=== PATIENT | male | born 2000 | race Caucasian/White ===

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

== ENCOUNTER 2020-04-23 12:56 | Emergency (ER) | payer MEDICAID, SELFPAY ==
[2020-04-23 13:48] VITALS: BP 113/68; PULSE 69; RESP 16; TEMP 36.2; O2SAT 98; BMI 19.9
[2020-04-23 14:04] VITALS: RESP 16
--- NOTE | 2020-04-23 14:31 | W.ED.BACK ---
HPI - Back Pain/Injury General: Chief Complaint: Back Pain/Injury Stated Complaint: Left lower back pain*2 weeks Time Seen by Provider: 04/23/20 14:11 History of Present Illness: HPI Narrative: Patient hurt back possibly was doing some remodeling house. Hurts to bend twist left side denies any hematuria did have an episode dysuria x1 MD elicited complaint: back pain Onset (ago): day(s) Timing: intermittent Severity: mild Similar Symptoms Previously: No Quality: aching Location: left flank Radiation: none Exacerbating factors: movement, sitting upright and walking Relieving factors: immobilization Associated symptoms: Reports other (Had dysuria x1 this week); Deny abdominal pain, chills, fever(s), nausea or vomiting Treatments prior to arrival: NSAIDS Work related injury: No Review of Systems Const: Denies: fever(s), chills or body aches Eyes: Denies: change in vision or blurry vision ENMT: Denies: throat pain or nasal congestion Card: Denies: chest pain or dyspnea on exertion Resp: Denies: dyspnea, productive cough or non-productive cough GI: Denies: abdominal pain, nausea or vomiting : Denies: difficulty urinating Musc: Reports: back pain; Denies: extremity pain Skin/Breast: Denies: rash Neuro: Denies: headache(s) Psych: Denies: anxiety or depression Quique/Lymph: Denies: easy bruising PFSH ED PFSH: Social History (Updated 04/23/20 @ 13:54 by Derrick Peralta RN) Smoking and tobacco status: former smoker Alcohol intake: never Substance/Drug Use: never Physical Exam Const: COMMON NORMALS: no acute distress, average body habitus and patient oriented x3 HENMT: COMMON NORMALS: normocephalic HEAD & SCALP: normal to inspection and normocephalic FACE & SINUS: normal facial exam Eye: COMMON NORMALS: conjunctivae normal GENERAL EYE: appearance normal, both eyes and all related structures CONJUNCTIVA: Yes conjunctivae normal Neck/C-Spine: COMMON NORMALS: no JVD Chest: COMMONS NORMALS: normal inspection of the chest Resp: COMMON NORMALS: normal respiratory effort and clear to auscultation bilaterally AUSCULTATION: clear to auscultation bilaterally Cardio: COMMON NORMALS: no JVD, regular rate and regular rhythm RATE: regular rate RHYTHM: regular rhythm GI: COMMON NORMALS: Normal to inspection, nondistended, normoactive bowel sounds present : BLADDER/KIDNEY EXAM: Yes CVA tenderness Back/Pelvis: GENERAL BACK: Yes CVA tenderness CVA tenderness: left Extremity: COMMON NORMALS: normal to inspection and full ROM Neuro: COMMON NORMALS: patient oriented x3 Course Vital Signs: Vital signs: Vital Signs Temperature 97.2 F L 04/23/20 13:48 Pulse Rate 69 04/23/20 13:48 Respiratory Rate 16 04/23/20 14:04 Blood Pressure 113/68 04/23/20 13:48 Pulse Oximetry 98 04/23/20 13:48 Coding Level of Care Code ED Senior Cobol Developer for Danis Reid
[2020-04-23 14:44] LABS: Add Urine Microscopic? NO
[2020-04-23 14:48] LABS: Protein Urine Neg (Negative); Urine Appearance Clear (CLEAR); Urine Color Straw (Yellow); pH Urine 8 (5-7)
[2020-04-23 14:49] LABS: Bilirubin Urine Neg (Negative); Blood Urine Neg (Negative); Glucose Urine UA Norm (Normal); Ketones Urine Negative (Negative); Leukocyte Esterase Urine Negative (Negative); Nitrate Urine Negative (Negative); Sulfosalicylic Acid Urine Negative (Negative); Urobilinogen Urine Norm (Negative)
== END 2020-04-23 15:14 | disposition home or self-care (01) ==
PROVIDERS: Emergency Provider Nurse Practitioner Family
DX: M54.5 Low back pain (principal); Z87.891 Personal history of nicotine dependence
CPT/HCPCS: 12345; 81003; 99281; 99282

== ENCOUNTER 2020-09-29 21:21 | Emergency (ER) | payer MEDICAID, SELFPAY ==
[2020-09-29 21:26] VITALS: BP 129/82; PULSE 78; RESP 18; TEMP 36.6; O2SAT 98; BMI 21.4
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
[2020-09-29 22:08] VITALS: PULSE 79; O2SAT 99
[2020-09-29 22:12] VITALS: BP 124/73; PULSE 66; RESP 18; O2SAT 100
[2020-09-29] MEDS: lidocaine 1% INJ 20 mL INJECTION (22:12)
== END 2020-09-29 22:14 | disposition home or self-care (01) ==
PROVIDERS: Emergency Provider Nurse Practitioner Family
DX: S81.811A Laceration without foreign body, right lower leg, initial encounter (principal); W26.0XXA Contact with knife, initial encounter; Z87.891 Personal history of nicotine dependence
CPT/HCPCS: 12002; 99282

== ENCOUNTER → 2021-12-26 09:35 | Outpatient (BNVA) | payer OTHER, MEDICAID, SELFPAY | PROVIDERS: Visit Provider Nurse Practitioner | DX: F90.0 Attention-deficit hyperactivity disorder, predominantly inattentive type (principal); F70 Mild intellectual disabilities; F43.25 Adjustment disorder with mixed disturbance of emotions and conduct; Z72.0 Tobacco use | CPT/HCPCS: 90792 ==

== ENCOUNTER 2022-01-07 03:17 | Emergency (ER) | payer MEDICAID, SELFPAY ==
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
[2022-01-07 03:30] VITALS: BP 144/87; PULSE 78; RESP 16; TEMP 36.7; O2SAT 98; BMI 19.6
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
[2022-01-07 05:09] VITALS: PULSE 62; RESP 17; O2SAT 100
== END 2022-01-07 05:10 | disposition home or self-care (01) ==
PROVIDERS: Emergency Provider Emergency Medicine
DX: S09.90XA Unspecified injury of head, initial encounter (principal); V48.0XXA Car driver injured in noncollision transport accident in nontraffic accident, initial encounter
CPT/HCPCS: 70450; 73130; 99283

== ENCOUNTER 2022-02-11 17:00 | Emergency (ER) | payer OTHER, SELFPAY ==
--- NOTE | 2022-02-11 17:05 | XRR_ITS ---
PROCEDURE INFORMATION: Exam: XR Left Hand Exam date and time: 02/11/2022 5:26 PM Age: 21 years old Clinical indication: Hand; Right; Patient HX: Pain base of 5th finger; Additional info: Injury TECHNIQUE: Imaging protocol: Radiologic exam of the Left hand. Views: 3 or more views. COMPARISON: CR (UP EX, ) 01/07/2022 3:57 AM FINDINGS: Bones/joints: Normal. Soft tissues: Normal. XR/XR hand LT min 3V* [id number] IMPRESSION: No acute findings.
[2022-02-11 18:33] VITALS: BP 122/84; PULSE 80; RESP 16; TEMP 36.9; O2SAT 100
--- NOTE | 2022-02-11 19:54 | ED_ITS ---
HPI - Extremity Problem General: Chief complaint: Extremity Injury, Upper Stated complaint: finger injury on left Time Seen by Provider: 02/11/22 19:43 History of Present Illness: 21-year-old male patient comes in today for complaints of injury to the left little finger. Patient thinks he dislocated it at the MCP joint. Patient reports putting it back into place and since then he has had no significant discomfort or decreased range of motion. No obvious sign of injury is noted. Patient appears well. 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 Mild intellectual disability Psychiatric care Vapes nicotine containing substance Social History Smoking and tobacco status: current every day smoker e-cigarettes Alcohol intake: never Physical Exam Const: COMMON NORMALS: alert HENMT: COMMON NORMALS: normocephalic HEAD & SCALP: normocephalic Neck/C-Spine: COMMON NORMALS: full ROM Resp: COMMON NORMALS: normal respiratory effort Cardio: COMMON NORMALS: regular rate RATE: regular rate Extremity: LEFT UPPER EXTREMITY: Yes hand & digits (No deformity, normal range of motion) Left hand and digits: Yes inspection, Yes palpation and Yes ROM Neuro: SENSORIUM/ORIENTATION: Yes alert Course Vital Signs: Vital signs: Vital Signs Temperature 98.4 F 02/11/22 18:33 Pulse Rate 80 02/11/22 18:33 Respiratory Rate 16 02/11/22 18:33 Blood Pressure 122/84 02/11/22 18:33 Pulse Oximetry 100 02/11/22 18:33 MDM - Extremity (Nontraumatic) Medical Decision Making Patient comes in for concerns of injury to the left little finger. On exam there is no sign of injury. No significant swelling or bruising is noted. Differential diagnosis includes fracture, sprain, contusion. X-rays noted no fracture, sprain, dislocation. Reviewed exam with patient with recommendations for treatment and follow-up. Patient reported understanding and agreed to plan. Lab Data Radiology Impressions Hand X-Ray 02/11/22 17:05 IMPRESSION: No acute findings. Discharge Plan Discharge Patient Disposition: Home Clinical Impression: Finger sprain Qualifiers: Encounter type: initial encounter Finger: little finger Sprain of finger site: unspecified site Laterality: left Qualified Code(s): S63.617A - Unspecified sprain of left little finger, initial encounter Condition: Stable Prescriptions: No Action bupropion HCl 150 mg tablet extended release 24 hr 150 mg PO QAM 0RF methocarbamol 750 mg tablet 750 mg PO Q6H PRN (Reason: spasms) Qty: 20 0RF Naprosyn 500 mg tablet 500 mg PO BID PRN (Reason: pain) Qty: 20 0RF Discharge Orders: Discharge ED (Routine); Ordered 02/11/22 Ordered By: Santino Walsh Discharge Diet: Usual diet Discharge Activity: Increase activity as tolerated Patient Instructions: Finger Sprain (ED) Activity Restrictions/Additional Instructions: Activity as tolerated. Acetaminophen and ibuprofen for pain. Follow-up with primary care for further instructions. Return to ER for new concerns. 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
== END 2022-02-11 20:34 | disposition home or self-care (01) ==
PROVIDERS: Emergency Provider Nurse Practitioner Family
DX: S63.617A Unspecified sprain of left little finger, initial encounter (principal); F17.290 Nicotine dependence, other tobacco product, uncomplicated; X58.XXXA Exposure to other specified factors, initial encounter
CPT/HCPCS: 73130; 99283

== ENCOUNTER 2022-02-12 22:17 | Emergency (ER) | payer MEDICAID, SELFPAY ==
[2022-02-12 22:35] VITALS: BP 119/72; PULSE 97; RESP 18; TEMP 36.6; O2SAT 97; BMI 20.3
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
== END 2022-02-13 00:15 | disposition home or self-care (01) ==
PROVIDERS: Emergency Provider Nurse Practitioner Family
DX: S20.211A Contusion of right front wall of thorax, initial encounter (principal); S80.11XA Contusion of right lower leg, initial encounter; F17.290 Nicotine dependence, other tobacco product, uncomplicated; V89.2XXA Person injured in unspecified motor-vehicle accident, traffic, initial encounter
CPT/HCPCS: 71101; 73590; 99283

== ENCOUNTER 2022-08-06 09:45 | Emergency (ER) | payer MEDICAID, SELFPAY ==
[2022-08-06 09:54] VITALS: BP 132/79; PULSE 70; RESP 16; TEMP 36.6; O2SAT 99; BMI 3237.7
--- NOTE | 2022-08-06 10:04 | XRR_ITS ---
PROCEDURE INFORMATION: Exam: XR Right Hand Exam date and time: 08/06/2022 10:09 AM Age: 21 years old Clinical indication: Injury or trauma; Blunt trauma (contusions or hematomas); Hand; Right; Injury details: Finger got stuck between a pallet and something and he jerked it out, pain mostly in middle finger, PT unable to remove ring; Additional info: Middle finger injury TECHNIQUE: Imaging protocol: Radiologic exam of the Right hand. Views: 3 or more views. Frontal Oblique Lateral COMPARISON: No relevant prior studies available. FINDINGS: Bones/joints: There is normal alignment without fractures or dislocations. The joints appear unremarkable. The visualized incompletely evaluated wrist region is grossly unremarkable. A ring is seen overlying the proximal phalanx of the ring finger, which limits assessment. Soft tissues: There is no radiographic soft tissue swelling. There are no radiopaque foreign bodies. Notes: If there is further concern, recommend follow-up radiographs or MRI for complete assessment. XR/XR hand RT min 3V* [id number] IMPRESSION: No fractures or dislocation of the right hand.
--- NOTE | 2022-08-06 10:22 | ED_ITS ---
HPI - Extremity Problem General: Chief complaint: Extremity Injury, Upper Stated complaint: right finger injury Time Seen by Provider: 08/06/22 10:04 History of Present Illness: Patient is a 21-year-old male comes to the ED with right finger injury. Injury occurred just prior to arrival to the ED. Patient says he was picking up a pallet on a conveyor belt and smashed his middle finger between 2 charcoal bags. He states that the finger got bent back a little as well. Associated symptoms: Deny chest pain, fever(s) or rash Review of Systems Const: Denies: fever(s), chills or fatigue Eyes: Denies: change in vision or eye discomfort ENMT: Denies: throat pain, odynophagia, nasal discharge or nasal congestion Card: Denies: chest pain, palpitations, edema, swelling of feet/ankles, dyspnea on exertion or orthopnea Resp: Denies: dyspnea, productive cough or non-productive cough GI: Denies: abdominal pain, nausea, vomiting, diarrhea, constipation or hematochezia : Denies: flank pain, difficulty urinating, dysuria or hematuria Musc: Reports: extremity pain (Right hand-middle finger injury); Denies: neck pain, back pain or extremity swelling Skin/Breast: Denies: rash or new lesions Neuro: Denies: headache(s), numbness in extremities or weakness in extremities PFSH ED PFSH: Medical History ADHD, 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 Mild intellectual disability Psychiatric care Vapes nicotine containing substance Social History Smoking and tobacco status: current every day smoker e-cigarettes Alcohol intake: never Physical Exam Const: COMMON NORMALS: no acute distress, patient oriented x3, healthy appearing and alert HENMT: COMMON NORMALS: normocephalic HEAD & SCALP: normocephalic MOUTH: Normal oral and palatal mucosa present THROAT: posterior oropharynx normal and uvula midline Neck/C-Spine: COMMON NORMALS: supple GENERAL: Yes normal visual inspection Resp: COMMON NORMALS: normal respiratory effort, No retractions, No use of accessory muscles and clear to auscultation bilaterally AUSCULTATION: clear to auscultation bilaterally Cardio: COMMON NORMALS: regular rate, regular rhythm, S1 normal heart sound present, S2 normal heart sound present, No gallops present (Cardio), No clicks present (Cardio), No murmurs present (Cardio) and Peripheral pulses 2+ throughout RATE: regular rate RHYTHM: regular rhythm HEART SOUNDS: S1 normal heart sound present and S2 normal heart sound present PERIPHERAL PULSES: Peripheral pulses 2+ throughout GI: COMMON NORMALS: Normal to inspection, nondistended, normoactive bowel sounds present, Soft to palpation, non-tender and no masses PALPATION: Yes Soft to palpation : COMMON NORMALS: Yes no CVA tenderness BLADDER/KIDNEY EXAM: Yes no CVA tenderness Back/Pelvis: COMMON NORMALS: no CVA tenderness Extremity: NARRATIVE EXTREMITY EXAM: Right hand?middle finger?tenderness at the DIP joint. No deformity seen. No ecchymosis or swelling noted. Neurovascular intact. Neuro: COMMON NORMALS: patient oriented x3 SENSORIUM/ORIENTATION: Yes alert GAIT: Yes Normal gait present Skin: GENERAL SKIN EXAM: dry skin Course Vital Signs: Vital signs: Vital Signs Temperature 97.9 F 08/06/22 09:54 Pulse Rate 70 08/06/22 09:54 Respiratory Rate 16 08/06/22 09:54 Blood Pressure 132/79 08/06/22 09:54 Pulse Oximetry 99 08/06/22 09:54 Oxygen Delivery Me thod 08/06/22 09:54 MDM - Extremity (Nontraumatic) Medical Decision Making Patient is a 21-year-old male comes to the ED with right finger injury. Injury occurred just prior to arrival to the ED. Patient says he was picking up a pallet on a conveyor belt and smashed his middle finger between 2 charcoal bags. He states that the finger got bent back a little as well.vitals stable. Right hand?middle finger?tenderness at the DIP joint. No deformity seen. No ecchymosis or swelling noted. Neurovascular intact. X-ray of right hand showed no acute fractures or dislocations. Patient was diagnosed with a finger sprain and was stable for discharge home. Sent home with a prescription for ibuprofen 800 mg. Worker's Comp. paperwork was filled out. told to follow-up with PCP in the next week for reevaluation. Patient understood and agreed with plan. Lab Data Radiology Impressions Hand X-Ray 08/06/22 10:04 IMPRESSION: No fractures or dislocation of the right hand. Discharge Plan Discharge Patient Disposition: Home Clinical Impression: Finger sprain Qualifiers: Encounter type: initial encounter Finger: middle finger Sprain of finger site: unspecified site Laterality: right Qualified Code(s): S63.612A - Unspecified sprain of right middle finger, initial encounter Condition: Stable Prescriptions: New ibuprofen 800 mg tablet 800 mg PO Q8H PRN (Reason: pain) Qty: 10 0RF No Action bupropion HCl 150 mg tablet extended release 24 hr 150 mg PO QAM Qty: 30 1RF Discharge Orders: Discharge ED (Routine); Ordered 08/06/22 Ordered By: Amish Alexandra Discharge Diet: Regular Discharge Activity: Increase activity as tolerated Patient Instructions: Finger Sprain (ED) Activity Restrictions/Additional Instructions: Follow-up with medical provider as directed in the next 5 to 7 days for reevaluation. Take medications as prescribed. Return to the ER or your medical provider if condition worsens. Please read and understand discharge instructions. Thank you for choosing [facility] [place] for your healthcare needs today. Please realize this is an emergency room and that we are providing you with a medical screening exam and this may not be complete and all inclusive of all the testing and or work up that you may need to determine your ailment or severity of your illness. It is very important that you follow up as instructed or that you return to the Emergency Department should you have concerns or if your co ndition changes or worsens in any way. 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
[2022-08-06] MEDS: ibuprofen 800 mg tablet PO (10:40)
== END 2022-08-06 11:15 | disposition home or self-care (01) ==
PROVIDERS: Emergency Provider Physician Assistant
DX: S63.612A Unspecified sprain of right middle finger, initial encounter (principal); F17.290 Nicotine dependence, other tobacco product, uncomplicated; W23.0XXA Caught, crushed, jammed, or pinched between moving objects, initial encounter
CPT/HCPCS: 73130; 99283

== ENCOUNTER 2024-01-05 07:45 | Emergency (ER) | payer SELFPAY ==
[2024-01-05 07:51] VITALS: BP 133/86; PULSE 68; RESP 16; TEMP 36.5; O2SAT 98
--- NOTE | 2024-01-05 08:05 | XRR_ITS ---
PROCEDURE INFORMATION: Exam: XR Chest Exam date and time: 01/05/2024 8:14 AM Age: 23 years old Clinical indication: Cough and dyspnea; Additional info: Dyspnea/cough TECHNIQUE: Imaging protocol: Radiologic exam of the chest. Views: 1 view. COMPARISON: CR XR ribs RT mn 3V w CXR1V [id number] 02/12/2022 10:54 PM FINDINGS: Lungs: Unremarkable. No consolidation. Pleural spaces: Unremarkable. No pleural effusion. No pneumothorax. Heart/Mediastinum: Unremarkable. No cardiomegaly. Bones/joints: Unremarkable. XR/XR chest 1V portable [id number] IMPRESSION: No acute findings.
--- NOTE | 2024-01-05 08:10 | W.ED.CHESTPA ---
HPI - Chest Pain General: Chief Complaint: Chest Pain Stated Complaint: Chest pains Time Seen by Provider: 01/05/24 08:04 Source: patient Mode of arrival: ambulatory History of Present Illness: 23-year-old male presents emergency room complaining of chest pain began about an hour and a half prior to arrival while he was at work. He states he has had this in the past and been evaluated cannot recall exactly what conclusion they came to his somewhere in [place]. It sounds as if they may have done a cardiac workup. He has not previously had any surgeries he has no known significant past medical history no history of any arrhythmias PEs or DVT. He denies use of drugs or alcohol. He does note that when he sits up or when he takes deep breath his symptoms worsen. Cannot reproduce with palpation. No vomiting no diarrhea no fever sweats or chills. 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, predominantly inattentive type Vapes nicotine containing substance Social History Smoking and tobacco/nicotine status: current every day tobacco/nicotine user e-cigarettes Alcohol intake: never Substance/Drug Use: never Physical Exam Const: COMMON NORMALS: no acute distress GENERAL APPEARANCE: cooperative and comfortable ORIENTATION/CONSCIOUSNESS: Yes awake, Yes oriented to person, Yes oriented to place and Yes oriented to time HENMT: COMMON NORMALS: normocephalic, atraumatic and hearing grossly normal bilaterally HEAD & SCALP: normocephalic and atraumatic Resp: COMMON NORMALS: normal respiratory effort, No retractions, No use of accessory muscles and clear to auscultation bilaterally AUSCULTATION: clear to auscultation bilaterally Cardio: COMMON NORMALS: regular rate, regular rhythm and No murmurs present (Cardio) RATE: regular rate RHYTHM: regular rhythm GI: COMMON NORMALS: Soft to palpation and No hepatosplenomegaly present AUSCULTATION: Yes normoactive bowel sounds PALPATION: Yes Soft to palpation, No Tenderness to palpation present (GI), No Guarding due to palpation present (GI) and Yes No hepatosplenomegaly present Extremity: COMMON NORMALS: normal to inspection, capillary refill normal, no clubbing, cyanosis or edema, no calf tenderness and no pedal edema Neuro: SENSORIUM/ORIENTATION: Yes oriented to person, Yes oriented to place and Yes oriented to time Skin: COMMON NORMALS: no rashes or lesions noted GENERAL SKIN EXAM: no rashes or lesions noted Course Vital Signs: Vital signs: Vital Signs Temperature 97.7 F 01/05/24 07:51 Pulse Rate 56 L 01/05/24 11:44 Respiratory Rate 18 01/05/24 08:53 Blood Pressure 113/61 01/05/24 11:44 Pulse Oximetry 98 01/05/24 11:44 Oxygen Delivery Me thod Room Air 01/05/24 11:44 MDM - Chest Pain Medical Decision Making Patient presented with chest pain. There was worse with movement somewhat with inspiration. He had good relief of symptoms with a GI cocktail. D-dimer was negative chest x-ray normal cardiac enzymes and EKG did not show any abnormalities. Will discharge patient home start on Protonix 40 twice daily for 10 days then once daily after that recheck with primary care if not improving if worsens or changes return. Medical Records I reviewed the patient's medical records. Lab Data I reviewed the patient's lab results. 01/05/24 07:55 01/05/24 07:55 Radiology Impressions Chest X-Ray 01/05/24 08:05 IMPRESSION: No acute findings. Laboratory Results WBC 5.51 10^3/uL (3.29-11.43) 01/05/24 07:55 RBC 4.81 10^6/uL (3.85-5.65) 01/05/24 07:55 Hgb 14.40 g/dL (11.27-16.99) 01/05/24 07:55 Hct 42.2 % (37-53) 01/05/24 07:55 MCV 87.7 fl (82-101) 01/05/24 07:55 MCH 29.9 pg (27-33) 01/05/24 07:55 MCHC 34.1 g/dL (30-55) 01/05/24 07:55 RDW 12.2 % (12.1-15.1) 01/05/24 07:55 Plt Count 298 10^3/cmm (157-399) 01/05/24 07:55 MPV 10.2 fL (7.4-10.4) 01/05/24 07:55 Neut % (Auto) 55.2 % 01/05/24 07:55 Lymph % (Auto) 33.4 % 01/05/24 07:55 [place] % (Auto) 8.7 % 01/05/24 07:55 Eos % (Auto) 2.0 % 01/05/24 07:55 Baso % (Auto) 0.5 % 01/05/24 07:55 Neut # (Auto) 3.04 10^3/uL (1.8-7.7) 01/05/24 07:55 Lymph # (Auto) 1.8 10^3/uL (0.8-4.8) 01/05/24 07:55 [place] # (Auto) 0.5 10^3/uL (0.2-0.9) 01/05/24 07:55 Eos # (Auto) 0.1 10^3/uL (0.0-0.8) 01/05/24 07:55 Baso # (Auto) 0.0 10^3/uL (0.0-0.1) 01/05/24 07:55 Nucleated RBC % (auto) 0 % 01/05/24 07:55 Nucleated RBCs # 0.0 /100WBC 01/05/24 07:55 D-Dimer 0.17 ug/mLFEU (0-0.59) 01/05/24 10:01 Sodium 139 mmol/L (136-145) 01/05/24 07:55 Potassium 4.0 mmol/L (3.5-5.1) 01/05/24 07:55 Chloride 103 mmol/L (98-107) 01/05/24 07:55 Carbon Dioxide 26 mmol/L (22-29) 01/05/24 07:55 Anion Gap 14.0 (5-19) 01/05/24 07:55 BUN 14 mg/dL (6-20) 01/05/24 07:55 Creatinine 0.9 mg/dL (0.7-1.2) 01/05/24 07:55 GFR Calculation 104.6 mL/min (90-130) 01/05/24 07:55 Glucose 100 mg/dL (65-115) 01/05/24 07:55 Calculated Osmolality 289 mOsm/kg (285-295) 01/05/24 07:55 Calcium 8.9 mg/dL (8.5-10.5) 01/05/24 07:55 Total Bilirubin 0.6 mg/dL (0.15-1.2) 01/05/24 07:55 AST 14 U/L (0-40) 01/05/24 07:55 ALT 13 U/L (0-41) 01/05/24 07:55 Alkaline Phosphatase 59 U/L (40-130) 01/05/24 07:55 Troponin T Baseline 7 ng/L (0-15) 01/05/24 07:55 Troponin T 120 Minute 6.00 ng/L (0-15) 01/05/24 10:01 Delta Troponin T -1.00 ABS# (0-10) L 01/05/24 10:01 Total Protein 7.2 g/dL (6.6-8.7) 01/05/24 07:55 Albumin 4.4 g/dL (3.5-5.2) 01/05/24 07:55 Globulin 2.8 g/dL (1.3-4.6) 01/05/24 07:55 Urine Color Yellow (Yellow) 01/05/24 10:12 Urine Appearance Slightly cloudy (CLEAR) 01/05/24 10:12 Urine pH 7 (5-7) 01/05/24 10:12 Ur Specific Amber 1.010 (1.005-1.030) 01/05/24 10:12 Urine Protein Neg (Negative) 01/05/24 10:12 Urine Glucose (UA) Norm (Normal) 01/05/24 10:12 Urine Ketones Negative (Negative) 01/05/24 10:12 Urine Blood Neg (Negative) 01/05/24 10:12 Urine Nitrate Negative (Negative) 01/05/24 10:12 Urine Bilirubin Neg (Negative) 01/05/24 10:12 Urine Urobilinogen 1 mg/dL (Negative) H 01/05/24 10:12 Ur Leukocyte Esterase Negative (Negative) 01/05/24 10:12 Urine RBC None /hpf (0-2) 01/05/24 10:12 Urine WBC None /hpf (0-5) 01/05/24 10:12 Ur Squamous Epith Cells None /hpf (0-5) 01/05/24 10:12 Amorphous Sediment 2+ /hpf 01/05/24 10:12 Urine Bacteria Trace /hpf (NONE) 01/05/24 10:12 All radiology interpretation(s) finalized by discharge Discharge Plan Discharge Patient Disposition: Home Clinical Impression: Chest pain due to GERD Condition: Stable Prescriptions: New pantoprazole 40 mg tablet,delayed release (DR/EC) 40 mg PO DAILY Qty: 40 0RF Rx Instructions: Twice daily for 10 days then daily Discontinued ibuprofen 800 mg tablet 800 mg PO Q8H PRN (Reason: pain) Qty: 10 0RF No Action bupropion HCl 150 mg tablet extended release 24 hr 150 mg PO QAM Qty: 30 1RF Discharge Orders: Discharge ED (Routine); Ordered 01/05/24 Ordered By: Juan Antonio Conroy Patient Instructions: Diet for Stomach Ulcers and Gastritis (ED), GERD (Gastroesophageal Reflux Disease) (ED), Opioid Safety, Pain Management Activity Restrictions/Additional Instructions: Thank you for choosing [facility] for your healthcare needs today. It is very important that you follow up as instructed or that you return to the Emergency Department should you have concerns or if your condition changes or worsens in any way. You are seen today with a complaint of chest pain. Your cardiac enzymes laboratory studies including liver functions kidney function white count were all normal. The D-dimer was negative. There is no sign of acute coronary syndrome or pulmonary embolism at this time. Since her symptoms improved with the liquid medication are given suspect that your chest discomfort may be emanating from reflux. Avoid anti-inflammatories such as ibuprofen. Will have you start pantoprazole 1 pill twice a day for 10 days then 1 pill daily. 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
[2024-01-05 08:24] LABS: Basophils % 0.5 %; Eosinophils # 0.1 10^3/uL (0.0-0.8); Hematocrit 42.2 % (37-53); Lymphocytes # 1.8 10^3/uL (0.8-4.8); Lymphocytes % 33.4 %; Mean Corpuscular HGB Conc 34.1 g/dL (30-55); Mean Corpuscular Hemoglobin 29.9 pg (27-33); Mean Corpuscular Volume 87.7 fl (82-101); Mean Platelet Volume 10.2 fL (7.4-10.4); Monocytes # 0.5 10^3/uL (0.2-0.9); Monocytes % 8.7 %; Neutrophils # 3.04 10^3/uL (1.8-7.7); Neutrophils % 55.2 %; Nucleated Red Blood Cells % 0 %; Platelet Count 298 10^3/cmm (157-399); Red Blood Count 4.81 10^6/uL (3.85-5.65); Red Cell Distribution Width 12.2 % (12.1-15.1); White Blood Count 5.51 10^3/uL (3.29-11.43)
[2024-01-05 08:33] LABS: Alanine Aminotransferase 13 U/L (0-41); Albumin Level 4.4 g/dL (3.5-5.2); Alkaline Phosphatase 59 U/L (40-130); Aspartate Amino Transferase 14 U/L (0-40); Blood Urea Nitrogen 14 mg/dL (6-20); Calcium 8.9 mg/dL (8.5-10.5); Carbon Dioxide 26 mmol/L (22-29); Chloride 103 mmol/L (98-107); Creatinine Clr Calc Pharmacy 131.0382; Globulin 2.8 g/dL (1.3-4.6); Glomerular Filtration Rate 104.6 mL/min (90-130); Glucose 100 mg/dL (65-115); Osmolality Calculated 289 mOsm/kg (285-295); Sodium 139 mmol/L (136-145); Total Bilirubin 0.6 mg/dL (0.15-1.2); Total Protein 7.2 g/dL (6.6-8.7)
[2024-01-05] MEDS: lidocaine 2% viscous 15 ML, aluminum-mag hydrox-simethicon 30 ML, sucralfate oral liq 1 GM PO (08:51)
[2024-01-05 08:53] VITALS: PULSE 75; RESP 18; O2SAT 99
--- NOTE | 2024-01-05 09:51 | ECG_ITS ---
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 Measurements Intervals [place] Rate: 69 P: 15 MO: 102 QRS: -20 QRSD: 102 T: 5 QT: 368 QTc: 395 Interpretive Statements SINUS RHYTHM WITH SINUS ARRHYTHMIA WITH SHORT MO INTERVAL VOLTAGE CRITERIA FOR LVH [MEETS CRITERIA IN ONE OF: R(aVL), S(V1), R(V5), R(V5/V6)+S(V1)] No previous ECG available for comparison Electronically Signed On 01-05-2024 19:00:27 CDT by Sierra Aguirre M.D. [email or web address]
[2024-01-05 10:21] VITALS: BP 122/67; PULSE 52; O2SAT 98
[2024-01-05 10:45] LABS: Troponin(5th) Baseline 7 ng/L (0-15)
[2024-01-05 10:50] LABS: Add Urine Culture? No; Add Urine Microscopic? YES; Amorphous Sediment Urine 2+ /hpf; Bacteria Urine TRACE /hpf; Bilirubin Urine Neg (Negative); Blood Urine Neg (Negative); Glucose Urine UA Norm (Normal); Ketones Urine Negative (Negative); Leukocyte Esterase Urine Negative (Negative); Nitrate Urine Negative (Negative); Protein Urine Neg (Negative); Urine Appearance Slightly Cloudy (CLEAR); Urine Color Yellow (Yellow); Urobilinogen Urine 1 mg/dL (Negative); pH Urine 7 (5-7)
[2024-01-05 11:11] LABS: D Dimer 0.17 ug/mLFEU (0-0.59)
[2024-01-05 11:44] VITALS: BP 113/61; PULSE 56; O2SAT 98
--- NOTE | 2024-01-05 11:51 | ECG_ITS ---
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 Measurements Intervals [place] Rate: 51 P: 9 [place]: 111 QRS: 80 QRSD: 98 T: 71 QT: 413 QTc: 382 Interpretive Statements SINUS BRADYCARDIA WITH SHORT WA INTERVAL EARLY REPOLARIZATION [ST ELEVATION WITH NORMALLY INFLECTED T-WAVE] Compared to ECG 01/05/2024 07:51:05 Early repolarization now present Sinus rhythm no longer present Sinus arrhythmia no longer present Left ventricular hypertrophy no longer present Electronically Signed On 01-05-2024 19:07:45 CDT by Sierra Aguirre M.D. [email or web address]
[2024-01-05 13:14] VITALS: BP 113/61; PULSE 56; RESP 18; TEMP 36.5; O2SAT 98
== END 2024-01-05 12:30 | disposition home or self-care (01) ==
PROVIDERS: Emergency Provider Family Medicine
DX: K21.9 Gastro-esophageal reflux disease without esophagitis (principal); F17.290 Nicotine dependence, other tobacco product, uncomplicated
CPT/HCPCS: 36415; 71045; 80053; 81001; 84484; 85025; 85378; 93005; 99285